=== PATIENT | female | born 1960 | race Caucasian/White ===

== ENCOUNTER → 2016-11-06 | Outpatient (CLI) | payer BC ==
[~2016-11-06] MED LIST: 'PARAFON FORTE500 M1 PO; BACTRIM DS 8001 TA1 PO; CRESTOR10 M1 PO; DARVOCET N 1001 TAB PO; DICYCLOMINE10 MG PO; DIOVAN HCT 12.51 TA2 PO; DIOVAN80 M1 PO; FENOFIBRATE145 M1 PO; FLUOXETINE HYDR20 M1 PO; FLUOXETINE20 M1 PO; HYDROCODONE BIT1 T11 PO; LEVAQUIN250 MG PO; LOMOTIL 0.025 M1 TA1 PO; METFORMIN HCL500 MG PO; METFORMIN500 MG PO; NAPROSYN500 MG PO; PEPCID20 MG PO; PRILOSEC20 M2 PO; SKELAXIN800 MG PO; SYNTHROID,LEVO88 MCG PO; TORADOL10 MG PO; TRICOR145 MG PO; VICODIN ES 7501 TAB PO; VITAMIN B 12 IJ; VITAMIN D2000 IU PO; ZOFRAN ODT4 MG SL
[2016-11-06 11:48] LABS: BASO # 0.1 10*3/uL (0.0-0.1); BASO % 0.9 % (0.0-1.0); EOS # 0.3 10*3/uL (0.0-0.4); EOS % 4.8 % (1.0-4.0); HEMATOCRIT 36.3 % (37.0-47.0); HEMOGLOBIN 11.5 g/dl (12.0-16.0); LYMPH # 1.8 10*3/uL (1.3-4.4); LYMPH % 32.2 % (27.0-41.0); MEAN CELL VOLUME 89.2 fl (81.0-99.0); MEAN CORPUSCULAR HGB 28.3 pg (27.0-31.0); MEAN CORPUSCULAR HGB CONC 31.7 g/dl (33.0-37.0); MEAN PLATELET VOLUME 8.8 fl (9.6-12.3); MONO # 0.4 10*3/uL (0.1-1.0); MONO % 6.9 % (3.0-9.0); NEUT # 3.1 10*3/uL (2.3-7.9); NEUT % 54.8 % (47.0-73.0); PLATELET COUNT AUTOMATED 367 10*3/uL (130-400); RED BLOOD COUNT 4.07 10*6/uL (4.10-5.10); WHITE BLOOD COUNT 5.6 10*3/uL (4.8-10.8)
[2016-11-06 12:11] LABS: BUN 17 mg/dl (7-24); CHLORIDE 107 mmol/L (98-107); CREATININE 0.91 mg/dL (0.55-1.02); POTASSIUM 4.2 mmol/L (3.5-5.1); SODIUM 142 mmol/L (136-145)
== END | disposition home or self-care (01) ==
LOC: LAB 11:18
PROVIDERS: Specialist
DX: M77.11 Lateral epicondylitis, right elbow (principal)

== ENCOUNTER 2016-12-03 06:40 | Inpatient (IN) | payer BC ==
[~2016-12-03] VITALS: Ht 167.6 cm; Wt 69.6 kg
[2016-12-03 06:51] VITALS: BP 139/77
[2016-12-03 07:27] LABS: BASO % 0.4 % (0.0-1.0); EOS # 0.2 10*3/uL (0.0-0.4); EOS % 2.2 % (1.0-4.0); HEMATOCRIT 34.9 % (37.0-47.0); HEMOGLOBIN 11.3 g/dl (12.0-16.0); LYMPH # 1.4 10*3/uL (1.3-4.4); LYMPH % 12.7 % (27.0-41.0); MEAN CELL VOLUME 88.6 fl (81.0-99.0); MEAN CORPUSCULAR HGB 28.7 pg (27.0-31.0); MEAN CORPUSCULAR HGB CONC 32.4 g/dl (33.0-37.0); MEAN PLATELET VOLUME 8.9 fl (9.6-12.3); MONO % 8.9 % (3.0-9.0); NEUT # 8.3 10*3/uL (2.3-7.9); NEUT % 75.3 % (47.0-73.0); PLATELET COUNT AUTOMATED 390 10*3/uL (130-400); RED BLOOD COUNT 3.94 10*6/uL (4.10-5.10); RED CELL DISTRI WIDTH 13.1 % (0-14.5)
[2016-12-03 07:28] LABS: BILIRUBIN NEGATIVE (NEGATIVE); BLOOD TRACE-INTACT (NEGATIVE); CLARITY SL CLOUDY (CLEAR); COLOR YELLOW (YELLOW); GLUCOSE NEGATIVE (NEGATIVE); KETONE NEGATIVE (NEGATIVE); LEUKO ESTERASE 1+ (NEGATIVE); NITRITE NEGATIVE (NEGATIVE); PH 5.5 (5.0-9.0); SPECIFIC GRAVITY 1.025 (1.005-1.030); UROBILINOGEN 0.2 E.U./dl (0.2-1.0)
[2016-12-03 07:37] LABS: BACTERIA TRACE
[2016-12-03 07:38] LABS: MUCOUS TRACE; WBC 21-30 wbc/hpf (0-5)
[2016-12-03 07:41] LABS: ALKALINE PHOSPHATASE 89 U/L (45-117); BUN 19 mg/dl (7-24); CHLORIDE 104 mmol/L (98-107); CREATININE 0.91 mg/dL (0.55-1.02); SGOT/AST 44 IU/L (3-35); SGPT/ALT 78 U/L (12-78); SODIUM 136 mmol/L (136-145); TOTAL PROTEIN 7.9 gm/dL (6.4-8.2)
--- NOTE | 2016-12-03 09:01 | NUR ---
PT C/O ITCHING ALL OVER, EYES, SKIN, THROAT. NO ADVERSE REACTION AT THIS TIME NOTED. DR NOTIFIED. ROCEPHIN STOPPED.
--- NOTE | 2016-12-03 09:02 | NUR ---
DR KENDRICK AT BEDSIDE
--- NOTE | 2016-12-03 09:09 | NUR ---
PT HAVING EMESIS OF LIQUID YELLOW AT THIS TIME. GIVEN IV BENADRYL AND COLD WASH CLOTH FOR FACE AT THIS TIME. SPOUSE AT BEDSIDE. NO HIVES OR DIFFICULTY BREATHING NOTED.
--- NOTE | 2016-12-03 09:19 | NUR ---
PT RESTING IN BED AT THIS TIME. TELLS ME "FEELS A LITTLE BETTER. POX 97% RA.
--- NOTE | 2016-12-03 09:56 | NUR ---
RESTING IN BED. FAINT PINK RASH NOTED. NO HIVES. NO SOB. NO COMPLAINTS AT PRESENT. SPOUSE AT BEDSIDE
--- NOTE | 2016-12-03 10:32 | NUR ---
STATES FEELS BETTER FROM NAUSEA AND ALLERGIVE REACTION.. BACK PAIN PERSISTS.
[2016-12-03 11:02] VITALS: BP 130/77
[2016-12-03 11:45] VITALS: BP 122/77
--- NOTE | 2016-12-03 11:52 | NUR ---
A 56, admitted to , under the services of FOSTER Alexander DO with a diagnosis of UTI, ALLERGIC REACTION. Chief complaint is UTI, ALLERGIC REACTION. Patient arrived via stretcher from ER. Monitor applied. Initial assessment completed. Vital signs taken and recorded. FOSTER ALEXANDER DO notified of admission to the unit. Orders received. See assessment for past medical history, medications and allergies. Patient and/or family oriented to unit. [address] visitation policy reviewed. Clothing/patient valuable form completed. [place]
[2016-12-03] MEDS ORDERED: WELLBUTRIN XL300 MG PO (12:14)
[2016-12-03 16:00] VITALS: BP 112/64
[2016-12-03 20:00] VITALS: BP 116/59
--- NOTE | 2016-12-03 21:58 | NUR ---
PRN NORCO 5/325 GIVEN PER PT. REQUEST OF BACK PAIN, RATING A 8/10. WILL MONITOR EFFECT.
--- NOTE | 2016-12-03 22:15 | NUR ---
PRN NORCO SEEMS TO BE EFFECTIVE. PT. IS SLEEPING COMFORTABLY WITH RESPIRATIONS EASY AND REGULAR, HOB IS ELEVATED AND CALL LIGHT IN REACH.
[2016-12-04] VITALS: BP 112/59
[2016-12-04 05:58] LABS: BASO % 0.1 % (0.0-1.0); HEMATOCRIT 32.5 % (37.0-47.0); HEMOGLOBIN 10.1 g/dl (12.0-16.0); LYMPH # 1.4 10*3/uL (1.3-4.4); LYMPH % 13.2 % (27.0-41.0); MEAN CELL VOLUME 90.5 fl (81.0-99.0); MEAN CORPUSCULAR HGB 28.1 pg (27.0-31.0); MEAN CORPUSCULAR HGB CONC 31.1 g/dl (33.0-37.0); MEAN PLATELET VOLUME 9.2 fl (9.6-12.3); MONO # 0.8 10*3/uL (0.1-1.0); MONO % 7.7 % (3.0-9.0); NEUT # 8.1 10*3/uL (2.3-7.9); NEUT % 78.4 % (47.0-73.0); PLATELET COUNT AUTOMATED 403 10*3/uL (130-400); RED BLOOD COUNT 3.59 10*6/uL (4.10-5.10); WHITE BLOOD COUNT 10.3 10*3/uL (4.8-10.8)
[2016-12-04 06:13] LABS: BUN 21 mg/dl (7-24); CHLORIDE 107 mmol/L (98-107); CHOLESTEROL 184 mg/dL (<200); CREATININE 0.76 mg/dL (0.55-1.02); HDL CHOLESTEROL 60 mg/dl (40-60); LDL CHOLESTEROL 103 mg/dL (9-159); MAGNESIUM 2.2 mg/dL (1.5-2.1); PHOSPHOROUS 3.3 mg/dL (2.5-4.9); POTASSIUM 4.7 mmol/L (3.5-5.1); SODIUM 140 mmol/L (136-145); TRIGLYCERIDES 103 mg/dl (<150); VLDL CHOLESTEROL 21 mg/dL (6-40)
[2016-12-04 06:19] LABS: THYROID STIM HORMONE (HS) 0.425 uIU/ml (0.358-4.75)
[2016-12-04 08:00] VITALS: BP 109/70
--- NOTE | 2016-12-04 08:00 | NUR ---
IN BED RESTING AWAKENS TO VOICE ORIENTED X3, NO S/S OF DISTRESS. SEE ASSESS. WILL CONT TO MONITOR. CALL LIGHT IN REACH.
--- NOTE | 2016-12-04 09:00 | NUR ---
Damper Fitter in to talk to patient. Patient states lives at home with . There are few steps in the home. Physician: maya mcknight Pharmacy: [facility] Home health services: none Patient's level of ADLs: INDEPENDENT Patient has working utilities: all working DME: none Follow-up physician's appointment after d/c: will be made by hospitalist nurse director upon discharge Does patient want to access PORTAL?: no Discharge plan discussed with patient, patient lives at home with , is independent in adls and ambulation, patient states she will be going home when able and denies any home needs. NIA MCGOWAN
[2016-12-04 10:05] LABS: VITAMIN D, 25-HYDROXY 19.7 ng/mL (30-100)
[2016-12-04] MEDS ORDERED: NITROFURANTOIN100 M9 PO (10:51)
[2016-12-04] MEDS ORDERED: PHENAZOPYRIDIN100 M1 PO (10:52)
--- NOTE | 2016-12-04 13:30 | NUR ---
PT DISCHARGED AT THIS TIME. IV REMOVED AND PRESSURE DRESSING APPLIED. HEART MONITOR RETURNED TO FLOOR. VERBALIZED UNDERSTANDING OF DISCHARGE INSTRUCTIONS
== END 2016-12-04 13:30 | disposition home or self-care (01) | DRG 916 ==
LOC: ED 06:40 → EDHOLD 10:29 → 4E 10:29
PROVIDERS: Emergency Medicine; Student in an Organized Health Care Education/Training Program; ADMIT Emergency Medicine
DX: T78.2XXA Anaphylactic shock, unspecified, initial encounter (principal); N30.10 Interstitial cystitis (chronic) without hematuria; K27.9 Peptic ulcer, site unspecified, unspecified as acute or chronic, without hemorrhage or perforation; I10 Essential (primary) hypertension; M54.9 Dorsalgia, unspecified; M77.11 Lateral epicondylitis, right elbow; E11.9 Type 2 diabetes mellitus without complications; E03.9 Hypothyroidism, unspecified; E78.5 Hyperlipidemia, unspecified

== ENCOUNTER 2017-03-21 17:29 | Emergency (ER) | payer BC ==
[~2017-03-21] VITALS: Ht 167.6 cm; Wt 68.0 kg
[~2017-03-21 17:29] MED LIST changes: +NITROFURANTOIN100 M9 PO; +PHENAZOPYRIDIN100 M1 PO; +WELLBUTRIN XL300 MG PO
[2017-03-21 18:16] LABS: BASO % 0.3 % (0.0-1.0); EOS % 0.4 % (1.0-4.0); HEMATOCRIT 35.1 % (37.0-47.0); HEMOGLOBIN 11.5 g/dl (12.0-16.0); LYMPH # 0.7 10*3/uL (1.3-4.4); LYMPH % 6.5 % (27.0-41.0); MEAN CELL VOLUME 86.5 fl (81.0-99.0); MEAN CORPUSCULAR HGB 28.3 pg (27.0-31.0); MEAN CORPUSCULAR HGB CONC 32.8 g/dl (33.0-37.0); MEAN PLATELET VOLUME 8.7 fl (9.6-12.3); MONO # 0.6 10*3/uL (0.1-1.0); MONO % 5.8 % (3.0-9.0); NEUT # 8.7 10*3/uL (2.3-7.9); NEUT % 86.6 % (47.0-73.0); PLATELET COUNT AUTOMATED 398 10*3/uL (130-400); RED BLOOD COUNT 4.06 10*6/uL (4.10-5.10); RED CELL DISTRI WIDTH 13.2 % (0-14.5); WHITE BLOOD COUNT 10.1 10*3/uL (4.8-10.8)
[2017-03-21 18:30] LABS: ALBUMIN 3.9 gm/dl (3.1-4.5); ALKALINE PHOSPHATASE 64 U/L (45-117); BUN 31 mg/dl (7-24); CHLORIDE 103 mmol/L (98-107); CREATININE 1.08 mg/dL (0.55-1.02); LIPASE 81 U/L (73-393); POTASSIUM 3.8 mmol/L (3.5-5.1); SGOT/AST 53 IU/L (3-35); SGPT/ALT 70 U/L (12-78); SODIUM 138 mmol/L (136-145); TOTAL PROTEIN 7.4 gm/dL (6.4-8.2)
[2017-03-21 20:40] VITALS: BP 94/57
== END 2017-03-21 20:28 | disposition home or self-care (01) ==
LOC: ED 17:29
PROVIDERS: Physician Assistant
DX: E86.0 Dehydration (principal); R11.10 Vomiting, unspecified; Z90.49 Acquired absence of other specified parts of digestive tract; Z98.890 Other specified postprocedural states; Z79.899 Other long term (current) drug therapy; Z88.1 Allergy status to other antibiotic agents; Z88.8 Allergy status to other drugs, medicaments and biological substances

== ENCOUNTER 2017-04-03 13:38 | Emergency (ER) | payer BC ==
[~2017-04-03] VITALS: Wt 67.6 kg
[2017-04-03 13:51] VITALS: BP 120/74
[2017-04-03 14:42] LABS: BASO % 0.5 % (0.0-1.0); EOS # 0.1 10*3/uL (0.0-0.4); EOS % 1.6 % (1.0-4.0); HEMATOCRIT 35.2 % (37.0-47.0); HEMOGLOBIN 11.1 g/dl (12.0-16.0); LYMPH % 22.8 % (27.0-41.0); MEAN CELL VOLUME 89.3 fl (81.0-99.0); MEAN CORPUSCULAR HGB 28.2 pg (27.0-31.0); MEAN CORPUSCULAR HGB CONC 31.5 g/dl (33.0-37.0); MEAN PLATELET VOLUME 8.9 fl (9.6-12.3); MONO # 0.7 10*3/uL (0.1-1.0); MONO % 15.3 % (3.0-9.0); NEUT # 2.5 10*3/uL (2.3-7.9); NEUT % 59.6 % (47.0-73.0); PLATELET COUNT AUTOMATED 266 10*3/uL (130-400); RED BLOOD COUNT 3.94 10*6/uL (4.10-5.10); RED CELL DISTRI WIDTH 13.5 % (0-14.5); WHITE BLOOD COUNT 4.3 10*3/uL (4.8-10.8)
[2017-04-03 14:58] LABS: ALBUMIN 3.8 gm/dl (3.1-4.5); ALKALINE PHOSPHATASE 82 U/L (45-117); BUN 14 mg/dl (7-24); CHLORIDE 108 mmol/L (98-107); CREATININE 0.84 mg/dL (0.55-1.02); LIPASE 191 U/L (73-393); SGOT/AST 80 IU/L (3-35); SGPT/ALT 82 U/L (12-78); SODIUM 142 mmol/L (136-145); TOTAL PROTEIN 7.1 gm/dL (6.4-8.2)
[2017-04-03] MEDS ORDERED: TAMIFLU 75MG CA75 MG PO (15:31)
== END 2017-04-03 15:35 | disposition home or self-care (01) ==
LOC: ED 13:38
PROVIDERS: Physician Assistant
DX: B34.9 Viral infection, unspecified (principal); H92.03 Otalgia, bilateral; J02.9 Acute pharyngitis, unspecified; Z88.1 Allergy status to other antibiotic agents; Z88.8 Allergy status to other drugs, medicaments and biological substances; Z79.899 Other long term (current) drug therapy

== ENCOUNTER → 2017-07-04 | Outpatient (CLI) | payer BC ==
[~2017-07-04] MED LIST changes: +TAMIFLU 75MG CA75 MG PO
[2017-07-04 10:58] LABS: BASO % 0.8 % (0.0-1.0); EOS # 0.2 10*3/uL (0.0-0.4); EOS % 3.3 % (1.0-4.0); HEMATOCRIT 38.7 % (37.0-47.0); HEMOGLOBIN 12.1 g/dl (12.0-16.0); LYMPH # 1.5 10*3/uL (1.3-4.4); MEAN CORPUSCULAR HGB 28.1 pg (27.0-31.0); MEAN CORPUSCULAR HGB CONC 31.3 g/dl (33.0-37.0); MEAN PLATELET VOLUME 9.1 fl (9.6-12.3); MONO # 0.4 10*3/uL (0.1-1.0); MONO % 8.2 % (3.0-9.0); NEUT % 58.5 % (47.0-73.0); PLATELET COUNT AUTOMATED 303 10*3/uL (130-400); RED CELL DISTRI WIDTH 12.9 % (0-14.5); WHITE BLOOD COUNT 5.1 10*3/uL (4.8-10.8)
[2017-07-04 11:01] LABS: IRON 94 ug/dL (50-170); TOTAL IRON BINDING CAPACITY 412 ug/dl (250-450)
== END | disposition home or self-care (01) ==
LOC: LAB 10:01
PROVIDERS: Family Medicine
DX: E78.4 Other hyperlipidemia (principal); D64.9 Anemia, unspecified; I10 Essential (primary) hypertension; M10.9 Gout, unspecified; R31.0 Gross hematuria

== ENCOUNTER → 2017-07-18 | Outpatient (CLI) | payer BC | END | disposition home or self-care (01) | LOC: RAD 08:38 | DX: M50.322 Other cervical disc degeneration at C5-C6 level (principal) ==

== ENCOUNTER → 2017-09-18 | Outpatient (CLI) | payer BC | END | disposition home or self-care (01) | LOC: US 13:11 | DX: I82.401 Acute embolism and thrombosis of unspecified deep veins of right lower extremity (principal) ==

== ENCOUNTER → 2017-12-20 | Outpatient (CLI) | payer BC ==
[~2017-12-20] MED LIST changes: +ATIVAN0.5 MG PO; +FAMCICLOVIR500 MG PO; +HYDROCODONE-AC1 EACH PO; +KLONOPIN0.5 MG PO; +NEOMYCIN OD; +POLY B OD; +VITAMIN D5000 UNI1 PO; +ZOFRAN4 MG PO
== END | disposition home or self-care (01) ==
LOC: RAD 10:30
DX: M47.892 Other spondylosis, cervical region (principal)

== ENCOUNTER 2018-07-19 12:56 | Inpatient (IN) | payer BC ==
[~2018-07-19] VITALS: Ht 167.6 cm; Wt 72.6 kg
--- NOTE | ~2018-07-19 | EKG ---
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
--- NOTE | ~2018-07-19 | EKG ---
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
[~2018-07-19 12:56] MED LIST changes: +LEVOFLOXACIN500 MG PO; +REGLAN10 M1 PO
[2018-07-19 13:01] VITALS: BP 160/82
[2018-07-19 13:12] LABS: BASO # 0.1 10*3/uL (0.0-0.1); BASO % 0.6 % (0.0-1.0); EOS # 0.2 10*3/uL (0.0-0.4); HEMATOCRIT 41.2 % (37.0-47.0); HEMOGLOBIN 13.4 g/dl (12.0-16.0); LYMPH # 2.6 10*3/uL (1.3-4.4); LYMPH % 32.9 % (27.0-41.0); MEAN CELL VOLUME 88.6 fl (81.0-99.0); MEAN CORPUSCULAR HGB 28.8 pg (27.0-31.0); MEAN CORPUSCULAR HGB CONC 32.5 g/dl (33.0-37.0); MONO # 0.6 10*3/uL (0.1-1.0); MONO % 7.9 % (3.0-9.0); NEUT # 4.5 10*3/uL (2.3-7.9); NEUT % 56.3 % (47.0-73.0); PLATELET COUNT AUTOMATED 336 10*3/uL (130-400); RED BLOOD COUNT 4.65 10*6/uL (4.10-5.10); RED CELL DISTRI WIDTH 13.4 % (0-14.5)
[2018-07-19 13:23] LABS: ACT PARTIAL THROMBO TIME 25.1 SECONDS (20.0-32.1); INTERNATIONAL NORM RATIO 0.9 (2.0-3.5)
[2018-07-19 13:27] LABS: ALBUMIN 4.4 gm/dl (3.1-4.5); ALKALINE PHOSPHATASE 84 U/L (45-117); BUN 19 mg/dl (7-24); CHLORIDE 105 mmol/L (98-107); CREATININE 0.91 mg/dL (0.55-1.02); LIPASE 99 U/L (73-393); POTASSIUM 3.5 mmol/L (3.5-5.1); SGOT/AST 21 IU/L (3-35); SGPT/ALT 39 U/L (12-78); SODIUM 141 mmol/L (136-145); TOTAL PROTEIN 8.3 gm/dL (6.4-8.2)
[2018-07-19 13:28] LABS: TROPONIN I < 0.015 ng/ml (<0.045)
[2018-07-19 13:38] VITALS: BP 134/80
[2018-07-19 14:08] VITALS: BP 132/76
--- NOTE | 2018-07-19 15:18 | NUR ---
ADMITTING INPATIENT NURSE IS AT LUNCH... UNABLE TO TAKE PATIENT UPSTAIRS AT THIS TIME.
[2018-07-19 15:40] VITALS: BP 117/75
--- NOTE | 2018-07-19 16:08 | NUR ---
A 57, admitted to , under the services of NYASIA Sorensen DO with a diagnosis of Chest Pain R/O M/I. Chief complaint is chest pain. Patient arrived via stretcher from ER. Monitor applied. Initial assessment completed. Vital signs taken and recorded. NYASIA SORENSEN DO notified of admission to the unit. Orders received. See assessment for past medical history, medications and allergies. Patient and/or family oriented to unit. [address] visitation policy reviewed. Clothing/patient valuable form completed. KRISTAL PEREYRA
[2018-07-19 16:12] VITALS: BP 128/84
[2018-07-19] MEDS ORDERED: LIPITOR10 MG PO (16:24)
[2018-07-19] MEDS ORDERED: VASCEPA1 G1 PO (16:25)
[2018-07-19 20:00] VITALS: BP 125/77
[2018-07-20] VITALS: BP 110/52; BP 92/45
[2018-07-20 06:30] LABS: BASO % 0.5 % (0.0-1.0); EOS # 0.2 10*3/uL (0.0-0.4); EOS % 3.7 % (1.0-4.0); HEMATOCRIT 39.9 % (37.0-47.0); HEMOGLOBIN 12.4 g/dl (12.0-16.0); LYMPH # 2.7 10*3/uL (1.3-4.4); LYMPH % 44.9 % (27.0-41.0); MEAN CELL VOLUME 90.5 fl (81.0-99.0); MEAN CORPUSCULAR HGB 28.1 pg (27.0-31.0); MEAN CORPUSCULAR HGB CONC 31.1 g/dl (33.0-37.0); MONO # 0.5 10*3/uL (0.1-1.0); MONO % 8.1 % (3.0-9.0); NEUT # 2.5 10*3/uL (2.3-7.9); NEUT % 42.6 % (47.0-73.0); PLATELET COUNT AUTOMATED 291 10*3/uL (130-400); RED BLOOD COUNT 4.41 10*6/uL (4.10-5.10); RED CELL DISTRI WIDTH 13.3 % (0-14.5); WHITE BLOOD COUNT 5.9 10*3/uL (4.8-10.8)
[2018-07-20 06:54] LABS: BUN 20 mg/dl (7-24); CHLORIDE 106 mmol/L (98-107); CREATININE 0.82 mg/dL (0.55-1.02); SODIUM 142 mmol/L (136-145)
[2018-07-20 06:59] LABS: POTASSIUM 4.7 mmol/L (3.5-5.1)
[2018-07-20 08:00] VITALS: BP 99/69
--- NOTE | 2018-07-20 10:29 | NUR ---
Discharge instructions reviewed with patient/family. Patient receptive and verbalizes understanding. Follow-up care arranged. Written instructions given to patient/family. HEP LOCK REMOVED, DRESSING AND PRESSURE APPLIED. COTTON CLEANER REMOVED AND ACCOUNTED FOR. ALL BELONGINGS ACCOUNTED FOR. PATIENT OFF FLOOR AT THIS TIME FOR DISCHARGE. MIROSLAVA MORRIS
== END 2018-07-20 10:31 | disposition home or self-care (01) | DRG 313 ==
LOC: ED 12:56 → EDHOLD 14:26 → 4E 15:41
PROVIDERS: Emergency Medicine; Family Medicine; ADMIT Internal Medicine
DX: R07.89 Other chest pain (principal); E78.5 Hyperlipidemia, unspecified; F32.9 Major depressive disorder, single episode, unspecified; K27.9 Peptic ulcer, site unspecified, unspecified as acute or chronic, without hemorrhage or perforation; E55.9 Vitamin D deficiency, unspecified; K59.03 Drug induced constipation; R61 Generalized hyperhidrosis; T50.905A Adverse effect of unspecified drugs, medicaments and biological substances, initial encounter; E03.9 Hypothyroidism, unspecified; I10 Essential (primary) hypertension; E11.9 Type 2 diabetes mellitus without complications; Z79.84 Long term (current) use of oral hypoglycemic drugs; Z88.1 Allergy status to other antibiotic agents; Z82.49 Family history of ischemic heart disease and other diseases of the circulatory system; Z88.8 Allergy status to other drugs, medicaments and biological substances; Z87.11 Personal history of peptic ulcer disease; Z90.49 Acquired absence of other specified parts of digestive tract; Y92.89 Other specified places as the place of occurrence of the external cause

== ENCOUNTER 2020-08-02 20:31 | Emergency (ER) | payer BC ==
[~2020-08-02] VITALS: Ht 167.6 cm; Wt 72.6 kg
[~2020-08-02 20:31] MED LIST changes: +LIPITOR10 MG PO; +VASCEPA1 G1 PO
[2020-08-02 21:05] LABS: BASO % 0.5 % (0.0-1.0); EOS # 0.2 10*3/uL (0.0-0.4); EOS % 3.1 % (1.0-4.0); HEMATOCRIT 40.3 % (37.0-47.0); LYMPH % 40.2 % (27.0-41.0); MEAN CELL VOLUME 89.2 fl (81.0-99.0); MEAN CORPUSCULAR HGB 28.3 pg (27.0-31.0); MEAN CORPUSCULAR HGB CONC 31.8 g/dl (33.0-37.0); MEAN PLATELET VOLUME 8.8 fl (9.6-12.3); MONO # 0.8 10*3/uL (0.1-1.0); MONO % 10.2 % (3.0-9.0); NEUT # 3.4 10*3/uL (2.3-7.9); NEUT % 45.9 % (47.0-73.0); PLATELET COUNT AUTOMATED 294 10*3/uL (130-400); RED BLOOD COUNT 4.52 10*6/uL (4.10-5.10); RED CELL DISTRI WIDTH 12.7 % (0-14.5); WHITE BLOOD COUNT 7.4 10*3/uL (4.8-10.8)
[2020-08-02 21:06] LABS: BILIRUBIN 1+ (Negative); BLOOD 3+ (Negative); CLARITY Cloudy (Clear); COLOR Orange (Yellow); GLUCOSE Negative (Negative); KETONE Negative (Negative); LEUKO ESTERASE 1+ (Negative); NITRITE Positive (Negative); PH 5.5 (4.5-8.0); SPECIFIC GRAVITY >= 1.030 (1.001-1.030)
[2020-08-02 21:16] LABS: RBC TNTC rbc/hpf (0-2)
[2020-08-02 21:21] LABS: ALBUMIN 3.8 gm/dl (3.1-4.5); ALKALINE PHOSPHATASE 104 U/L (45-117); BUN 21 mg/dl (7-24); CHLORIDE 110 mmol/L (98-107); CREATININE 0.91 mg/dL (0.55-1.02); SGOT/AST 34 IU/L (3-35); SGPT/ALT 54 U/L (12-78); SODIUM 140 mmol/L (136-145); TOTAL PROTEIN 7.7 gm/dL (6.4-8.2)
[2020-08-02 22:35] VITALS: BP 120/77
[2020-08-02] MEDS ORDERED: HYDROCODONE-AC1 EAC1 PO (23:49)
[2020-08-02] MEDS ORDERED: FLOMAX0.4 MG PO (23:49)
[2020-08-02] MEDS ORDERED: CIPRO500 MG PO (23:49)
[2020-08-02] MEDS ORDERED: ZOFRAN4 MG PO (23:49)
== END 2020-08-03 00:07 | disposition home or self-care (01) ==
LOC: ED 20:31
PROVIDERS: Physician Assistant
DX: N13.2 Hydronephrosis with renal and ureteral calculous obstruction (principal); Z88.8 Allergy status to other drugs, medicaments and biological substances; Z79.899 Other long term (current) drug therapy; Z90.49 Acquired absence of other specified parts of digestive tract; Z98.890 Other specified postprocedural states

== ENCOUNTER 2020-08-03 21:37 | Emergency (ER) | payer BC ==
[~2020-08-03] VITALS: Ht 167.6 cm; Wt 72.6 kg
[~2020-08-03 21:37] MED LIST changes: +CIPRO500 MG PO; +FLOMAX0.4 MG PO; +HYDROCODONE-AC1 EAC1 PO
[2020-08-03 22:13] VITALS: BP 139/77
[2020-08-03 23:59] LABS: BASO % 0.3 % (0.0-1.0); EOS % 0.2 % (1.0-4.0); LYMPH # 1.3 10*3/uL (1.3-4.4); LYMPH % 13.2 % (27.0-41.0); MEAN CELL VOLUME 88.6 fl (81.0-99.0); MEAN CORPUSCULAR HGB 28.2 pg (27.0-31.0); MEAN CORPUSCULAR HGB CONC 31.8 g/dl (33.0-37.0); MEAN PLATELET VOLUME 8.7 fl (9.6-12.3); MONO # 0.8 10*3/uL (0.1-1.0); MONO % 8.1 % (3.0-9.0); NEUT # 7.9 10*3/uL (2.3-7.9); PLATELET COUNT AUTOMATED 259 10*3/uL (130-400); RED BLOOD COUNT 4.29 10*6/uL (4.10-5.10); RED CELL DISTRI WIDTH 12.9 % (0-14.5); WHITE BLOOD COUNT 10.1 10*3/uL (4.8-10.8)
[2020-08-04 00:11] LABS: CREATININE 1.21 mg/dL (0.55-1.02); POTASSIUM 3.8 mmol/L (3.5-5.1)
== END 2020-08-04 01:11 | disposition home or self-care (01) ==
LOC: ED 21:37
PROVIDERS: Internal Medicine
DX: N20.9 Urinary calculus, unspecified (principal); Z88.8 Allergy status to other drugs, medicaments and biological substances; Z79.899 Other long term (current) drug therapy; Z79.84 Long term (current) use of oral hypoglycemic drugs; Z90.49 Acquired absence of other specified parts of digestive tract; Z98.890 Other specified postprocedural states

== ENCOUNTER → 2021-12-21 | Outpatient (CLI) | payer BC | END | disposition home or self-care (01) | LOC: RAD 16:21 | PROVIDERS: ATTEND Nurse Practitioner Primary Care | DX: R30.0 Dysuria (principal); M54.9 Dorsalgia, unspecified; Z87.42 Personal history of other diseases of the female genital tract ==

== ENCOUNTER → 2022-01-23 | Outpatient (CLI) | payer BC | END | disposition home or self-care (01) | LOC: CARD 00:10 | PROVIDERS: ATTEND Internal Medicine Cardiovascular Disease | DX: R55 Syncope and collapse (principal) ==

== ENCOUNTER → 2022-11-12 | Outpatient (CLI) | payer BC | END | disposition home or self-care (01) | LOC: LAB 12:36 | PROVIDERS: ATTEND Family Medicine | DX: E03.9 Hypothyroidism, unspecified (principal); E53.8 Deficiency of other specified B group vitamins; L29.9 Pruritus, unspecified; R59.0 Localized enlarged lymph nodes ==

== ENCOUNTER 2024-03-09 11:22 | Emergency (ER) | payer BC ==
[~2024-03-09] VITALS: Ht 165.1 cm; Wt 59.0 kg
[2024-03-09 11:33] VITALS: BP 130/74
[2024-03-09] MEDS ORDERED: IOHEXOL 300 MG/ML 100 ML VIAL IV ONE (11:50)
[2024-03-09] MEDS ORDERED: Synthroid,Levo50 MCG PO (12:00)
[2024-03-09] MEDS ORDERED: MOUNJARO7.5 MG/0.1 SQ (12:02)
[2024-03-09] MEDS ORDERED: B121000 MCG/1 IM (12:03)
[2024-03-09 12:07] LABS: BASO % 0.5 % (0.0-1.0); EOS # 0.2 10*3/uL (0.0-0.4); EOS % 3.1 % (1.0-4.0); MEAN CELL VOLUME 87.7 fl (81.0-99.0); MEAN CORPUSCULAR HGB 28.9 pg (27.0-31.0); MEAN PLATELET VOLUME 8.8 fl (9.6-12.3); MONO # 0.6 10*3/uL (0.1-1.0); MONO % 7.5 % (3.0-9.0); NEUT # 4.8 10*3/uL (2.3-7.9); NEUT % 62.3 % (47.0-73.0); PLATELET COUNT AUTOMATED 297 10*3/uL (130-400); RED BLOOD COUNT 4.56 10*6/uL (4.10-5.10); RED CELL DISTRI WIDTH 12.6 % (0-14.5); WHITE BLOOD COUNT 7.7 10*3/uL (4.8-10.8)
[2024-03-09 12:34] LABS: BUN 17 mg/dl (9-23); CHLORIDE 104 mmol/L (98-107); POTASSIUM 4.4 mmol/L (3.4-5.1); SGPT/ALT 73 U/L (5-49); TOTAL PROTEIN 7.3 gm/dL (6.0-8.0)
[2024-03-09 12:36] LABS: ALKALINE PHOSPHATASE 89 U/L (46-116)
[2024-03-09 14:51] LABS: BILIRUBIN Negative (Negative); BLOOD Negative (Negative); CLARITY Clear (Clear); COLOR Yellow (Yellow); GLUCOSE Negative (Negative); KETONE Negative (Negative); LEUKO ESTERASE Negative (Negative); NITRITE Negative (Negative); PH 6.5 (4.5-8.0); SPECIFIC GRAVITY >= 1.030 (1.001-1.030); UROBILINOGEN 0.2 E.U./dl (0.0-1.0)
[2024-03-09 15:09] LABS: EPITHELIAL CELLS 0-2; RBC 0-2 rbc/hpf (0-2); WBC 0-2 wbc/hpf (0-5)
== END 2024-03-09 15:52 | disposition home or self-care (01) ==
LOC: ED 11:22
PROVIDERS: Nurse Practitioner Family
DX: N20.0 Calculus of kidney (principal); R74.01 Elevation of levels of liver transaminase levels; I10 Essential (primary) hypertension; E11.9 Type 2 diabetes mellitus without complications; K21.9 Gastro-esophageal reflux disease without esophagitis; F32.A Depression, unspecified; E78.00 Pure hypercholesterolemia, unspecified; Z88.8 Allergy status to other drugs, medicaments and biological substances; Z90.49 Acquired absence of other specified parts of digestive tract; Z90.89 Acquired absence of other organs; Z98.890 Other specified postprocedural states

== ENCOUNTER → 2024-03-23 | Outpatient (CLI) | payer BC ==
[~2024-03-23] MED LIST changes: +B121000 MCG/1 IM; +MOUNJARO7.5 MG/0.1 SQ; +Synthroid,Levo50 MCG PO
[2024-03-24 21:06] LABS: ALPHA 2-MACAROGLOBULINS 178 mg/dL (110-276); ALT (SGPT) P5P 46 IU/L (0-40); APOLIPOPROEIN A-1 163 mg/dL (116-209); BILIRUBIN, TOTAL 0.6 mg/dL (0.0-1.2); CHOLESTEROL, TOTAL 160 mg/dL (100-199); FIBROSIS STAGE F0-F1 (.); GGT 80 IU/L (0-60); GLUCOSE, SERUM 90 mg/dL (70-99); HAPTOGLOBIN 199 mg/dL (37-355); TRIGLYCERIDES 225 mg/dL (0-149)
== END | disposition home or self-care (01) ==
LOC: LAB 10:36
PROVIDERS: ATTEND Internal Medicine Gastroenterology
DX: K76.0 Fatty (change of) liver, not elsewhere classified (principal); R74.01 Elevation of levels of liver transaminase levels

== ENCOUNTER 2024-09-04 18:51 | Emergency (ER) | payer MEDICARE, BC ==
[~2024-09-04] VITALS: Ht 167.6 cm; Wt 58.1 kg
[2024-09-04 19:08] VITALS: BP 139/88
[2024-09-04] MEDS ORDERED: CELECOXIB200 M1 PO (19:17)
[2024-09-04] MEDS ORDERED: Ondansetron Hydrochloride 4 MG/2 ML VIAL IV ONE (19:20)
[2024-09-04] MEDS ORDERED: SODIUM CHLORIDE 0.9% 500 ML IV ONE (19:20)
[2024-09-04 19:28] LABS: BASO # 0.0 10*3/uL (0.0-0.1); BASO % 0.6 % (0.0-1.0); EOS # 0.2 10*3/uL (0.0-0.4); EOS % 4.7 % (1.0-4.0); MEAN CELL VOLUME 90.2 fl (81.0-99.0); MEAN CORPUSCULAR HGB 29.2 pg (27.0-31.0); MEAN PLATELET VOLUME 8.8 fl (9.6-12.3); MONO # 0.4 10*3/uL (0.1-1.0); MONO % 8.0 % (3.0-9.0); NEUT # 2.3 10*3/uL (2.3-7.9); NEUT % 46.3 % (47.0-73.0); NUCLEATED RED BLOOD CELL 0.0 % (0.0-0.0); NUCLEATED RED BLOOD CELL 0.0 10*3/uL (0.0-0.0); PLATELET COUNT AUTOMATED 264 10*3/uL (130-400); RED CELL DISTRI WIDTH 11.9 % (0-14.5)
[2024-09-04 19:48] LABS: BILIRUBIN Negative (Negative); BLOOD Negative (Negative); CLARITY Clear (Clear); COLOR Yellow (Yellow); KETONE Trace (Negative); LEUKO ESTERASE Negative (Negative); NITRITE Negative (Negative); PH 6.0 (4.5-8.0); SPECIFIC GRAVITY 1.025 (1.001-1.030); UROBILINOGEN 1.0 E.U./dl (0.0-1.0)
[2024-09-04 19:48] LABS: BUN 19 mg/dl (9-23); SGPT/ALT 71 U/L (5-49)
[2024-09-04 19:54] LABS: MUCOUS 1+; WBC 0-2 wbc/hpf (0-5)
[2024-09-04] MEDS ORDERED: Ondansetron4 MG PO (22:26)
[2024-09-04] MEDS ORDERED: REGLAN10 M1 PO (22:26)
[2024-09-04] MEDS ORDERED: Ondansetron 4 MG 2 TAB ED PACK PO SCH (22:30)
== END 2024-09-04 22:54 | disposition home or self-care (01) ==
LOC: ED 18:51
PROVIDERS: Emergency Medicine
DX: A08.4 Viral intestinal infection, unspecified (principal); N20.0 Calculus of kidney; R10.11 Right upper quadrant pain; R74.01 Elevation of levels of liver transaminase levels; Z98.890 Other specified postprocedural states; Z88.1 Allergy status to other antibiotic agents; Z88.8 Allergy status to other drugs, medicaments and biological substances; Z79.899 Other long term (current) drug therapy; Z90.49 Acquired absence of other specified parts of digestive tract; Z90.89 Acquired absence of other organs

== ENCOUNTER → 2024-11-05 | Outpatient (CLI) | payer MEDICARE, BC ==
[~2024-11-05] MED LIST changes: +CELECOXIB200 M1 PO; +Ondansetron4 MG PO
[2024-11-07 15:07] LABS: DILUTE PROTHROMBIN TIME 31.7 sec (0.0-47.6); DPT CONFIRM RATIO 1.18 Ratio (0.00-1.34); LUPUS DRVVT 38.2 sec (0.0-47.0); LUPUS REFLEX INTERPRETATION Comment: (.); PTT-LA 30.2 sec (0.0-43.5); THROMBIN TIME 21.9 sec (0.0-23.0)
== END | disposition home or self-care (01) ==
LOC: LAB 15:01
PROVIDERS: ATTEND Family Medicine
DX: K76.0 Fatty (change of) liver, not elsewhere classified (principal); M19.90 Unspecified osteoarthritis, unspecified site; R74.01 Elevation of levels of liver transaminase levels

== ENCOUNTER → 2024-12-29 | Outpatient (CLI) | payer MEDICARE, BC ==
[2025-01-01 03:06] LABS: LUPUS DRVVT 39.1 sec (0.0-47.0); PTT-LA 30.3 sec (0.0-43.5)
== END | disposition home or self-care (01) ==
LOC: LAB 13:22
PROVIDERS: ATTEND Family Medicine
DX: K76.0 Fatty (change of) liver, not elsewhere classified (principal); R74.01 Elevation of levels of liver transaminase levels; M19.90 Unspecified osteoarthritis, unspecified site